=== PATIENT | female | born 1995 | race American Indian/Alaskan Native ===

== ENCOUNTER 2017-01-21 09:06 | Inpatient (IN) | payer MEDICAID ==
[2017-01-21] MEDS ORDERED: PITOCin/NS 20 UNIT/1000ML DRIP 20,000 MILLIUNITS/1,000 ML BAG IV ONE (13:11)
[2017-01-21] MEDS ORDERED: LACTATED RINGERS 1,000 ML ONE (13:11)
[2017-01-21] MEDS ORDERED: POLYCILLIN/NS 2 GM/100 ML 2 GM/100 ML BAG IV ONE (13:18)
--- NOTE | 2017-01-21 13:59 | Procedure Note ---
OB Delivery Note - Delivery Date of Delivery: 01/21/17 (1332) Surgeon: ALLY LOFTON Estimated blood loss: 200cc - Vaginal Delivery presentation: vertex Delivery position: OA Intrapartum events: none Delivery induction: none Delivery augmentation: rupture of membranes Delivery monitor: external FHT, external uterine Route of delivery: Delivery placenta: spontaneous Delivery cord: 3 umbilical vessels Episiotomy: none Delivery laceration: none Anesthesia: none Delivery comments: Baby girl Rajiv was delivered on 01/21/2017 @ 1332 over an intact perineum. Baby was placed directly on mom's chest and abdomen where she responded well to drying and stimulation. Cord was clamped and cut by RN. Placenta delivered [place] side presenting. Fundus firm, midline and 3cm below umbilicus. Baby weighed 6lb 6oz. Apgars 8/9. EBL 200. - Infant A at 1 minute: 8 at 5 minutes: 9 Infant Gender: Female
[2017-01-21] MEDS ORDERED: LACTATED RINGERS 1,000 ML IV SCH (14:00)
[2017-01-21] MEDS ORDERED: ePHEDrine SULFATE IV PRN (14:00)
[2017-01-21] MEDS ORDERED: PITOCin/NS 20 UNIT/1000ML DRIP 20 UNITS/1,000 ML BAG IV SCH (14:00)
[2017-01-21] MEDS ORDERED: MILK OF MAGNESIA PO PRN (14:02)
[2017-01-21] MEDS ORDERED: ZOFRAN IV PRN (14:02)
[2017-01-21] MEDS ORDERED: DULCOLAX PR PRN (14:02)
[2017-01-21] MEDS ORDERED: TUCKS PAD TP PRN (14:02)
[2017-01-21] MEDS ORDERED: LANSINOH TP PRN (14:02)
[2017-01-21] MEDS ORDERED: TYLENOL PO PRN (14:02)
[2017-01-21] MEDS ORDERED: NORCO 5/325 PO PRN (14:02)
--- NOTE | 2017-01-21 14:09 | History and Physical Report ---
History of Present Illness Date of examination: 01/21/17 Date of admission: 01/21/2017 Chief complaint: Active labor History of present illness: 21 yo G2 at 38.2 weeks. Pt of life cycle. records are not currently available. Pt reports GBS positive. Pt presented to L&D triage and after walking x 45 minutes she was c/c/0 with a BBOW. Brought to labor room where she precipitously delivered. Past History - Obstetrical History Expected Date of Delivery: 02/02/17 Actual Gestation: 38 Week(s) 2 Day(s) : 2 Para: 2 Hx # Term Pregnancies: 1 Number of Pregnancies: 1 Spontaneous Abortions: 0 Induced : 0 Number of Living Children: 2 Medications and Allergies Allergies Allergy/AdvReac Type Severity Reaction Status Date / Time No Known Allergies Allergy Verified 12/07/13 23:30 Home Medications Medication Instructions Recorded Confirmed Last Taken Type Bisacodyl [Dulcolax] 10 mg PO DAILY PRN #5 tab 12/07/13 Unknown Rx Lactulose 30 gm PO QID PRN #450 ml 12/07/13 Unknown Rx HYDROcodone/APAP 5-325 [[place] 1 each PO Q6H PRN #20 tablet 06/29/15 Unknown Rx 5-325 mg TAB] Ibuprofen [Motrin 600 MG tab] 600 mg PO Q6H PRN #100 tablet 06/29/15 Unknown Rx Cetirizine HCl [ZyrTEC] 10 mg PO DAILY #20 capsule 04/12/16 Unknown Rx predniSONE [Deltasone] 20 mg PO QDAY #5 tab 04/12/16 Unknown Rx Active Meds: Active Medications Acetaminophen (Tylenol) 650 mg PO Q4H PRN PRN Reason: Pain MILD(1-3)/Fever >100.5/SHETH Acetaminophen/Hydrocodone Bitart ([place] 5/325) 2 each PO Q6H PRN PRN Reason: Pain, Moderate (4-6) Bisacodyl (Dulcolax) 10 mg MI BID PRN PRN Reason: Constipation Ephedrine Sulfate (Ephedrine Sulfate) 10 mg IV Q2M PRN PRN Reason: Hypotension Stop: 01/21/17 14:05 Lactated Ringer's (Lactated Ringers) 1,000 mls @ 125 mls/hr IV DIRECT ANN Oxytocin/Sodium Chloride (Pitocin/Ns 20 Unit/1000ml Drip) 20 units in 1,000 mls @ 125 mls/hr IV DIRECT ANN Ibuprofen (Motrin) 600 mg PO Q6H ANN Magnesium Hydroxide (Milk Of Magnesia) 30 ml PO HS PRN PRN Reason: Constipation Multi-Ingredient Ointment (Lansinoh) 1 applic TP PRN PRN PRN Reason: Sore Nipples Ondansetron HCl (Zofran) 4 mg IV Q8H PRN PRN Reason: Nausea And Vomiting Sodium Chloride (Sodium Chloride Flush Syringe 10 Ml) 10 ml IV PRN NR Witch Zeinab/Glycerin (Tucks Pad) 1 each TP PRN PRN PRN Reason: Hemorrhoid/cleansing/soothing Review of Systems All systems: negative - Vital Signs Vital signs: Vital Signs Pulse Pulse Ox 107 H 96 01/21/17 10:25 01/21/17 10:25 Temp Pulse Resp BP Pulse Ox 92 H 112/71 96 01/21/17 13:44 01/21/17 13:44 01/21/17 12:03 - Physical Exam Cardiovascular: Regular rate Lungs: Positive: Normal air movement Vagina: Positive: normal moisture Uterus: Positive: enlarged Anus/Rectum: Positive: normal perianal skin Extremities: Positive: normal Deep Tendon Reflex Grade: Normal +2 - Obstetrical FHR: auscultation normal Uterine Contraction Monitor Mode: External Cervical Dilatation: 10 Cervical Effacement Percentage: 100 station: 0 Uterine Contraction Pattern: Regular Uterine Tone Measurement Phase: Resting Uterine Contraction Intensity: Strong/Firm Results All other labs normal. Assessment and Plan A: IUP @38.2 weeks Active labor with precip delivery Category 1 FHT Uncomfortable with contractions GBS positive P: Admit to L&D Vaginally delivered at 1332
[2017-01-21 14:20] LABS: Hematocrit 37.8 % (30.3-42.9); Mean Corpuscular HGB Conc 32 % (30-34); Mean Corpuscular Volume 78 fl (79-97); Platelet Count 200 K/mm3 (140-440); Red Blood Count 4.87 M/mm3 (3.65-5.03); Red Cell Distribution Width 16.7 % (13.2-15.2); White Blood Count 14.4 K/mm3 (4.5-11.0)
[2017-01-21 14:23] LABS: Mean Corpuscular Hemoglobin 25 pg (28-32)
[2017-01-21] MEDS: MOTRIN PO SCH ×2 (14:57→21:27)
[2017-01-21] MEDS ORDERED: SODIUM CHLORIDE FLUSH SYRINGE 10 ML IV NR (15:00)
[2017-01-22 01:27] LABS: Hematocrit 32.9 % (30.3-42.9); Hemoglobin 10.6 gm/dl (10.1-14.3)
[2017-01-22] MEDS: MOTRIN PO SCH ×3 (04:09→22:11)
--- NOTE | 2017-01-22 09:02 | Progress Note ---
Assessment and Plan A: PPD #1 - stable P: Discharge home in am Subjective - Subjective Date of service: 01/22/17 Principal diagnosis: Patient reports: appetite normal [place]: doing well Objective - Vital Signs Latest vital signs: Vital Signs Temp Pulse Pulse Resp BP BP Pulse Ox 01/21/17 23:00 98.7 F 66 18 110/64 01/21/17 20:20 98.6 F 63 18 116/67 01/21/17 16:00 98.2 F 94 H 20 113/59 01/21/17 15:18 88 113/77 01/21/17 15:03 88 119/78 01/21/17 14:44 97 H 124/83 01/21/17 14:24 94 H 114/82 01/21/17 14:04 100 H 121/78 01/21/17 14:00 97.8 F 62 18 101/62 01/21/17 13:44 92 H 112/71 01/21/17 12:03 104 H 96 01/21/17 11:57 101 H 93 01/21/17 11:51 96 H 96 01/21/17 11:46 100 H 91 01/21/17 11:42 104 H 95 01/21/17 11:37 101 H 95 01/21/17 11:32 102 H 97 01/21/17 11:27 97 H 95 01/21/17 11:22 97 H 98 01/21/17 11:17 112 H 97 01/21/17 11:12 90 97 01/21/17 11:07 96 H 96 01/21/17 11:03 105 H 96 01/21/17 10:57 94 H 90 01/21/17 10:55 93 H 95 01/21/17 10:51 108 H 97 01/21/17 10:46 98 H 96 01/21/17 10:41 100 H 97 01/21/17 10:36 102 H 96 01/21/17 10:30 102 H 97 01/21/17 10:26 101 H 103/70 01/21/17 10:25 107 H 96 Intake and Output 01/21/17 01/22/17 01/22/17 22:59 06:59 14:59 Intake Total 480 240 Output Total 400 Balance 80 240 Intake: Intake, Free Water 480 240 Output: Urine 400 Void 400 Other: Total, Output Amount 400 # Voids Void 1 - Exam Breasts: Present: deferred Cardiovascular: Present: Regular rate Lungs: Present: Clear to auscultation Abdomen: Present: soft Vulva: both: normal Uterus: Present: fundal height below umbilicus Deep Tendon Reflex Grade: Normal +2 - Labs Labs: Abnormal lab results 01/21/17 Range/Units 12:55 WBC 14.4 H (4.5-11.0) K/mm3 MCV 78 L (79-97) fl MCH 25 L (28-32) pg RDW 16.7 H (13.2-15.2) %
--- NOTE | 2017-01-22 09:04 | Discharge Summary ---
Providers - Providers Date of Admission: 01/21/17 13:54 Date of discharge: 01/23/17 Attending physician: JEFFY DA SILVA MD Primary care physician: JEFFY DA SILVA MD Hospitalization Reason for admission: active labor Delivery: Episiotomy: none Laceration: none Other procedures: none Discharge diagnosis: IUP at term delivered [place] baby: female Condition at discharge: Good Disposition: DC-01 TO HOME OR SELFCARE Plan - Provider Discharge Summary Activity: routine, no sex for 6 weeks, no strenuous exercise Diet: routine Instructions: routine Additional instructions: [] Smoking cessation referral if applicable(refer to patient education folder for contact #) [] Refer to [facility] Book[facility] Call your doctor immediately for: * Fever > 100.5 * Heavy vaginal bleeding ( >1 pad per hour) * Severe persistent headache * Shortness of breath * Reddened, hot, painful area to leg or breast * Drainage or odor from incision. * Keep incision clean and dry at all times and follow doctor's instructions regarding bathing/showering - Follow up plan Follow up: [facility] [Provider Group] - 6 Weeks
[2017-01-23] MEDS: MOTRIN PO SCH (04:23)
[2017-01-23 15:13] VITALS: BP 110/60
== END 2017-01-23 14:10 | disposition home or self-care (01) | DRG 775 ==
LOC: TRG 09:06 → LD 13:54 → OB 15:49
PROVIDERS: ADMIT Obstetrics & Gynecology; ATTEND Obstetrics & Gynecology
PROC: 10E0XZZ Delivery of Products of Conception, External Approach (ICD-10-PCS; principal; 2017-01-21)
DX: O99.824 Streptococcus B carrier state complicating childbirth (principal); Z3A.38 38 weeks gestation of pregnancy; Z37.0 Single live birth
CPT/HCPCS: 36415; 85014; 85018; 85027; 86850; 86900; 86901; 99211; G0463; J0290; J2590; J7120

== ENCOUNTER 2017-07-14 13:37 | Emergency (ER) | payer MEDICAID ==
--- NOTE | 2017-07-14 15:04 | XRay Report ---
RIGHT ANKLE RADIOGRAPHS INDICATION: Pain. COMPARISON: None similar. FINDINGS: AP, lateral and oblique right ankle radiographs demonstrate intact mortise, malleoli and talar dome contour. Slight anterior soft tissue swelling not entirely excluded. CONCLUSION: Possible ankle sprain without fracture, as described. Please correlate. Thank you for the opportunity to participate in this patient's care.
[2017-07-14] MEDS ORDERED: TORADOL IV ONE (18:17)
[2017-07-14] MEDS ORDERED: NORCO 5/325 PO ONE (18:17)
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
[2017-07-14 20:10] VITALS: BP 115/75
== END 2017-07-14 19:00 | disposition home or self-care (01) ==
LOC: ED 13:37
DX: M25.571 Pain in right ankle and joints of right foot (principal); V43.52XA Car driver injured in collision with other type car in traffic accident, initial encounter; Y93.89 Activity, other specified; Y92.89 Other specified places as the place of occurrence of the external cause; Y99.8 Other external cause status
CPT/HCPCS: 73610; 96374; 99284; J1885; 96375

== ENCOUNTER 2020-10-24 12:45 | Emergency (ER) | payer OTHER ==
[2020-10-24 13:57] VITALS: BP 128/83
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
== END 2020-10-24 15:47 | disposition home or self-care (01) ==
LOC: ED 12:45
DX: S16.1XXA Strain of muscle, fascia and tendon at neck level, initial encounter (principal); S39.012A Strain of muscle, fascia and tendon of lower back, initial encounter; Z79.899 Other long term (current) drug therapy; V49.59XA Passenger injured in collision with other motor vehicles in traffic accident, initial encounter; Y93.89 Activity, other specified; Y92.488 Other paved roadways as the place of occurrence of the external cause; Y99.8 Other external cause status
CPT/HCPCS: 36415; 70450; 72125; 84703

== ENCOUNTER 2020-12-11 19:40 | Emergency (ER) | payer OTHER ==
[2020-12-11 19:50] VITALS: BP 129/84
== END 2020-12-11 19:48 | disposition left against medical advice (07) ==
LOC: ED 19:40
DX: R41.82 Altered mental status, unspecified (principal); Z53.21 Procedure and treatment not carried out due to patient leaving prior to being seen by health care provider